=== PATIENT | male | born 1995 | race Hispanic/Latino ===

== ENCOUNTER 2018-02-07 21:40 | Emergency (ER) | payer OTHER, SELFPAY ==
[2018-02-07] MEDS ORDERED: Ibuprofen 800 MG TAB ONE (21:50)
--- NOTE | 2018-02-07 22:15 | RAD ---
RIGHT FOOT THREE VIEWS: 02/07/2018 HISTORY: Trauma. Right foot pain for three to four hours. FINDINGS: The ankle mortise is congruent. There is no evidence of a fracture, dislocation, or other osseous ab normalities involving the right foot. IMPRESSION: No acute osseous abnormality. POS: [facility]
== END 2018-02-07 22:25 | disposition home or self-care (01) ==
LOC: ERS 21:40
DX: S90.31XA Contusion of right foot, initial encounter (principal); W23.0XXA Caught, crushed, jammed, or pinched between moving objects, initial encounter